=== PATIENT | female | born 1985 ===

== ENCOUNTER 2021-07-19 19:07 | Emergency (ER) | payer SELFPAY ==
[2021-07-19 21:06] LABS: Basophils # (Auto) 0.1 K/mm3 (0.0-0.1); Basophils % (Auto) 0.7 % (0.0-1.8); Eosinophils # (Auto) 0.1 K/mm3 (0.0-0.4); Eosinophils % (Auto) 0.6 % (0.0-4.3); Hematocrit 41.9 % (30.3-42.9); Lymphocytes # (Auto) 2.6 K/mm3 (1.2-5.4); Lymphocytes % (Auto) 22.4 % (13.4-35.0); Mean Corpuscular HGB Conc 33 % (30-34); Mean Corpuscular Volume 89 fl (79-97); Monocytes # (Auto) 0.5 K/mm3 (0.0-0.8); Monocytes % (Auto) 4.5 % (0.0-7.3); Platelet Count 214 K/mm3 (140-440); Red Blood Count 4.72 M/mm3 (3.65-5.03)
[2021-07-19 21:13] LABS: Calcium Oxalate Crystals,Urine 3+
[2021-07-19 21:19] LABS: Color,Urine Red (Yellow); RBC,Urine > 182.0 /HPF (0.0-6.0); WBC,Urine > 182.0 /HPF (0.0-6.0)
[2021-07-19 21:20] LABS: Bilirubin,Urine Color Interference (Negative); Blood,Urine TNR (Negative); PH,Urine TNR (5.0-7.0); Protein,Urine TNR mg/dL (Negative); Urobilinogen,Urine TNR mg/dL (<2.0)
[2021-07-19] MEDS ORDERED: ACETAMINOPHEN 500 MG TAB PO ONE (21:44)
[2021-07-19] MEDS ORDERED: LIDOCAINE-MPF (1%) 10 MG/1 ML VIAL 5 ML INFILTRATI ONE (21:44)
[2021-07-19 22:12] LABS: Alanine Aminotransferase 9 units/L (7-56); Blood Urea Nitrogen 7 mg/dL (7-17); Calcium 9.6 mg/dL (8.4-10.2); Hemolysis Index 5
[2021-07-19 22:19] LABS: BUN/Creatinine Ratio 12
--- NOTE | 2021-07-19 23:45 | Ultrasound Report ---
OBSTETRIC ULTRASOUND INDICATION: Pelvic pain, vaginal bleeding, COMPARISON: No prior relevant imaging studies are available for comparison. TECHNIQUE: Transabdominal imaging was performed. FINDINGS: Single viable intrauterine is identified. Heart rate is 90. Sonographic gestational age is 14 weeks 6 days by crown-rump length. Maternal ovaries are unremarkable. No amniotic fluid is seen. CONCLUSION: Single intrauterine . Heart rate is 90. There is essentially no amniotic fluid. Signer Name: Milton Pérez MD Signed: 07/19/2021 11:40 PM Workstation Name: [id number]
--- NOTE | 2021-07-20 00:58 | Emergency Department Report ---
ED Female HPI - General Chief complaint: Vaginal Bleeding Stated complaint: 12WKS /BLEEDING Source: patient, family Mode of arrival: Ambulatory Limitations: Language Barrier - History of Present Illness Initial comments: Patient is a A1 36-year-old female with no past medical history and who is approximately 12 weeks gestation presents to the ED with complaint of acute onset persistent pelvic pain with heavy vaginal bleeding for the last 8 hours. Patient states that she has not taken any medications for pain at home prior to arrival in the ED. Patient denies nausea and vomiting, fever, chills, dysuria, urinary frequency and urgency, low back pain, chest pain, shortness of breath, headache, lightheadedness, dizziness or syncope or diarrhea and cough. MD Complaint: vaginal bleeding, pelvic pain -: Sudden, hour(s) (8) Location: suprapubic, other (Vaginal) Radiation: non-radiating Severity: severe Severity scale (0 -10): 7 Quality: cramping, sharp Consistency: intermittent Improves with: none Worsens with: none Are you Now?: Yes (12 weeks gestation) Associated Symptoms: vaginal bleeding, abdominal pain (Suprapubic pain). denies: nausea/vomiting, fever/chills, headaches, dysuria, hematuria, rash, seizure, shortness of breath, syncope, weakness - Related Data Sexually active: Yes : 3 Para: 1 A: 1 Home Medications Medication Instructions Recorded Confirmed Last Taken Folic Acid 1 tab PO QDAY 05/09/18 05/09/18 05/08/18 14:00 1 Previous Rx's Medication Instructions Recorded Last Taken Type Acetaminophen [Tylenol] 500 mg PO Q6HR PRN #30 tablet 07/20/21 Unknown Rx cephALEXin [Keflex] 500 mg PO Q6HR #40 capsule 07/20/21 Unknown Rx Allergies Allergy/AdvReac Type Severity Reaction Status Date / Time aspirin Allergy Rash Verified 05/09/18 09:59 ED Review of Systems ROS: Stated complaint: 12WKS /BLEEDING Other details as noted in HPI Constitutional: denies: chills, fever Eyes: denies: eye pain, eye discharge, vision change ENT: denies: ear pain, throat pain Respiratory: denies: cough, shortness of breath, wheezing Cardiovascular: denies: chest pain, palpitations Endocrine: no symptoms reported Gastrointestinal: abdominal pain (Suprapubic pain). denies: nausea, vomiting, diarrhea, constipation, hematemesis Genitourinary: abnormal menses (Heavy vaginal bleeding). denies: urgency, dysuria, discharge Musculoskeletal: denies: back pain, joint swelling, arthralgia Skin: denies: rash, lesions Neurological: denies: headache, weakness, paresthesias Psychiatric: denies: anxiety, depression Hematological/Lymphatic: denies: easy bleeding, easy bruising ED Past Medical Hx - Past Medical History Previous Medical History?: No Hx Hypertension: No Hx Congestive Heart Failure: No Hx Diabetes: No Hx Deep Vein Thrombosis: No Hx Renal Disease: No Hx Sickle Cell Disease: No Hx Seizures: No Hx Asthma: No Hx COPD: No Hx HIV: No - Surgical History Past Surgical History?: No - Social History Smoking Status: Never Smoker - Medications Home Medications: Home Medications Medication Instructions Recorded Confirmed Last Taken Type Folic Acid 1 tab PO QDAY 05/09/18 05/09/18 05/08/18 14:00 History 1 Acetaminophen [Tylenol] 500 mg PO Q6HR PRN #30 tablet 07/20/21 Unknown Rx cephALEXin [Keflex] 500 mg PO Q6HR #40 capsule 07/20/21 Unknown Rx ED Physical Exam - General Limitations: Language Barrier General appearance: alert, in no apparent distress - Head Head exam: Present: atraumatic, normocephalic, normal inspection - Eye Eye exam: Present: normal appearance, PERRL, EOMI Pupils: Present: normal accommodation - ENT ENT exam: Present: normal exam, normal orophraynx, mucous membranes moist, TM's normal bilaterally, normal external ear exam - Neck Neck exam: Present: normal inspection, full ROM - Respiratory Respiratory exam: Present: normal lung sounds bilaterally. Absent: respiratory distress, wheezes, rales, rhonchi, chest wall tenderness, accessory muscle use, decreased breath sounds, other - Cardiovascular Cardiovascular Exam: Present: regular rate, normal rhythm, normal heart sounds. Absent: systolic murmur, diastolic murmur, rubs, gallop - GI/Abdominal GI/Abdominal exam: Present: soft, tenderness (Palpable suprapubic tenderness), normal bowel sounds. Absent: guarding, rebound, hyperactive bowel sounds, hypoactive bowel sounds - Bi-manual exam: Present: other (Pelvic exam deferred at this time patient preference) - Extremities Exam Extremities exam: Present: normal inspection, full ROM, normal capillary refill. Absent: tenderness - Back Exam Back exam: Present: normal inspection, full ROM. Absent: tenderness, CVA tenderness (R), CVA tenderness (L), muscle spasm, paraspinal tenderness, vertebral tenderness - Neurological Exam Neurological exam: Present: alert, oriented X3, CN II-XII intact, normal gait, reflexes normal - Psychiatric Psychiatric exam: Present: normal affect, normal mood - Skin Skin exam: Present: warm, dry, intact, normal color. Absent: rash ED Course Vital Signs 07/19/21 07/19/21 20:24 22:45 Temperature 98.7 F Pulse Rate 91 H Respiratory 17 14 Rate Blood Pressure 148/86 [Right] O2 Sat by Pulse 100 Oximetry - Reevaluation(s) Reevaluation #1: 07/20/21 01:08 I paged and discussed the patient's ultrasound reports, history and physical exam findings and lab test results with the AGRICULTURAL EQUIPMENT SALES ENGINEER physician on-call Dr. Abreu who advised that the patient needs to follow-up with his office first thing in the morning today on Tuesday, July 20, 2021 at 9:30 AM promptly for further evaluation. ED Medical Decision Making - Lab Data Result diagrams: 07/19/21 20:49 07/19/21 20:49 - Radiology Data Radiology results: report reviewed, image reviewed [place] [id number] Ultrasound Report Signed Patient: KAE APARICIO MR#: [id number] : 1985 Acct:[id number] Age/Sex: 36 / F ADM Date: 07/19/21 Loc: ED Attending Dr: Ordering Physician: JOO BOYD Date of Service: 07/19/21 Procedure(s): US OB <= 14 weeks fetus Accession Number(s): [id number] cc: JOO BOYD OBSTETRIC ULTRASOUND INDICATION: Pelvic pain, vaginal bleeding, COMPARISON: No prior relevant imaging studies are available for comparison. TECHNIQUE: Transabdominal imaging was performed. FINDINGS: Single viable intrauterine is identified. Heart rate is 90. Sonographic gestational age is 14 weeks 6 days by crown-rump length. Maternal ovaries are unremarkable. No amniotic fluid is seen. CONCLUSION: Single intrauterine . Heart rate is 90. There is essentially no amniotic fluid. Signer Name: Milton Pérez MD Signed: 07/19/2021 11:40 PM Workstation Name: [id number] Transcribed By: AMOR Dictated By: Milton Pérez MD Electronically Authenticated By: Milton Pérez MD Signed Date/Time: 07/19/212339 DD/ 37 TD/TT: - Medical Decision Making This is a A1 36-year-old female with no past medical history and who is approximately 12 weeks gestation presents to the ED with complaint of acute onset persistent pelvic pain with heavy vaginal bleeding for the last 8 hours. Patient states that she has not taken any medications for pain at home prior to arrival in the ED. in the ED, patient is alert and oriented x3 and is not in any distress. Patient was treated for pain in the ED. Lab test results were reviewed and showed acute leukocytosis of 11,500, significant urinary tract infection in urinalysis as well as gross hematuria, [place] [address]. Transvaginal ultrasound showed a single intrauterine of approximately 14 weeks and 6 days and heart rate of 90 beats per minute. There is essentially no amniotic fluid. Patient also received Rocephin 1 g intramuscular injection. These findings were discussed with the AGRICULTURAL EQUIPMENT SALES ENGINEER physician on-call Dr. Abreu who advised that the patient be discharged home and have her follow-up with his office first thing in the morning on Tuesday, July 20, 2021 at 0 9:30 AM for further evaluation. This plans were discussed with the patient who verbalized understanding and promised to comply in the presence of her family members. Patient was therefore discharged home on pain medication antibiotics and advised to maintain a complete pelvic rest and to follow-up with Dr. Abreu promptly as advised. Patient was otherwise advised return to the ED immediately if symptoms get worse. - Differential Diagnosis Threatened miscarriage; subchor bleed; UTI; ovarian cyst; uterine fibroid Critical care attestation.: If time is entered above; I have spent that time in minutes in the direct care of this critically ill patient, excluding procedure time. ED Disposition Clinical Impression: Inevitable , Vaginal bleeding in patient at less than 20 weeks gestation, Abdominal pain during in second trimester, Acute urinary tract infection, Threatened miscarriage Disposition: 01 HOME / SELF CARE / HOMELESS Is pt being admited?: No Does the pt Need Aspirin: No Condition: Stable Instructions: and Urinary Tract Infection, Abdominal Pain During , [id number], Urinary Tract Infection, Adult, [id number], Vaginal Bleeding During , Second Trimester, [id number], Threatened Miscarriage, [id number] Additional Instructions: Se revisaron todos los resultados de las pruebas de laboratorio y no son procesables, excepto por harry infeccin significativa del tracto urinario en el anlisis de orina. La ecografa transvaginal mostr un embarazo intrauterino ree de aproximadamente 14 semanas y 6 her y con harry frecuencia cardaca de 90. Esencialmente no hay lquido amnitico. Por lo tanto, tome los medicamentos recomendados para el dolor, tambin tome antibiticos y juliann un seguimiento con el mdico obstetra/gineclogo Dr. Abreu hoy a primera hora de la maana a las 9:30 a. m. en graves consultorio para harry evaluacin adicional. Regrese al servicio de urgencias inmediatamente si los sntomas empeoran. Prescriptions: Acetaminophen [Tylenol] 500 mg PO Q6HR PRN #30 tablet PRN Reason: Pain , Severe (7-10) cephALEXin [Keflex] 500 mg PO Q6HR #40 capsule Referrals: JANNA ABREU MD [Staff Physician] - [facility] (SEGUIMIENTO CON DR. ABREU A PRIMERA COSA DE LA MAANA A LAS 0930 AM PARA HARRY EVALUACIN ADICIONAL) Time of Disposition: 01:06 Print Language: CITIZEN OF [place]
[2021-07-20 02:08] VITALS: BP 135/72
== END 2021-07-20 02:09 | disposition home or self-care (01) ==
LOC: ED 19:07
DX: O03.4 Incomplete spontaneous abortion without complication (principal); O23.41 Unspecified infection of urinary tract in pregnancy, first trimester; N39.0 Urinary tract infection, site not specified; Z88.6 Allergy status to analgesic agent; Z3A.12 12 weeks gestation of pregnancy; Z79.899 Other long term (current) drug therapy
CPT/HCPCS: 36415; 76801; 80053; 81001; 84702; 85025; 86900; 86901; 96372; 99284; J0696; J3490

== ENCOUNTER 2021-07-22 17:12 | Emergency (ER) | payer SELFPAY ==
--- NOTE | 2021-07-22 18:39 | Emergency Department Report ---
HPI - General Chief Complaint: Abdominal Pain Time Seen by Provider: 07/22/21 18:28 - HPI HPI: Room 2 The patient is a 36-year-old female present with a chief complaint of lower abdominal pain and feeling as though she is having a miscarriage. The patient presented to this ED a few days ago for lower abdominal pain vaginal bleeding. Patient is . An ultrasound at that time revealed essentially no amniotic fluid. Patient states she has continued to have vaginal bleeding going through numerous pads a day but she is uncertain of the number because she changes them frequently. Patient comes in today because she states she feels though the baby is coming out. Patient currently gives her pain a score of 8/10 ED Past Medical Hx - Family History Family history: no significant - Social History Smoking Status: Never Smoker Substance Use Type: None - Medications Home Medications: Home Medications Medication Instructions Recorded Confirmed Last Taken Type Folic Acid 1 tab PO QDAY 05/09/18 05/09/18 05/08/18 14:00 History 1 Acetaminophen [Tylenol] 500 mg PO Q6HR PRN #30 tablet 07/20/21 Unknown Rx cephALEXin [Keflex] 500 mg PO Q6HR #40 capsule 07/20/21 Unknown Rx Azithromycin [Zithromax Z-ERNESTINA] 0 mg PO DAILY #6 tab 07/22/21 Unknown Rx Ibuprofen [Motrin 800 MG tab] 800 mg PO Q8HR PRN #20 tablet 07/22/21 Unknown Rx ED Review of Systems ROS: Stated complaint: AB PAIN / Other details as noted in HPI Constitutional: no symptoms reported Eyes: denies: eye pain ENT: denies: throat pain Respiratory: no symptoms reported Cardiovascular: denies: chest pain Endocrine: no symptoms reported Gastrointestinal: abdominal pain Genitourinary: abnormal menses Musculoskeletal: denies: back pain Neurological: denies: headache Physical Exam - Physical Exam Vital Signs: Vital Signs 07/22/21 17:57 Temperature 99 F Pulse Rate 135 H Respiratory 18 Rate Blood Pressure 139/90 [Right] O2 Sat by Pulse 98 Oximetry Physical Exam: GENERAL: The patient is well-developed well-nourished female lying on stretcher not appearing to be in acute distress. [] HEENT: Normocephalic. Atraumatic. Extraocular motions are intact. Patient has moist mucous membranes. NECK: Supple. Trachea midline CHEST/LUNGS: Clear to auscultation. There is no respiratory distress noted. HEART/CARDIOVASCULAR: Regular. There is no tachycardia. There is no gallop rub or murmur. ABDOMEN: Abdomen is soft, with mild suprapubic discomfort. Patient has normal bowel sounds. There is no abdominal distention. SKIN: There is no rash. There is no edema. There is no diaphoresis. NEURO: The patient is awake, alert, and oriented. The patient is cooperative. The patient has no focal neurologic deficits. The patient has normal speech. GCS 15 MUSCULOSKELETAL: There is no evidence of acute injury. ED Course Vital Signs 07/22/21 17:57 Temperature 99 F Pulse Rate 135 H Respiratory 18 Rate Blood Pressure 139/90 [Right] O2 Sat by Pulse 98 Oximetry - Reevaluation(s) Reevaluation #1: 07/22/21 19:30 Patient passed fetus umbilical cord still attached. SILK SCREEN FRAME ASSEMBLER called - Consultations Consultation #1: 07/22/21 19:30 SILK SCREEN FRAME ASSEMBLER paged 07/22/21 20:15 Case discussed with SILK SCREEN FRAME ASSEMBLER Dr. Jansen- recommends giving Hemabate 250 mcg IM x1 now and then repeating the dose in 30 minutes 07/22/21 22:[address] Jansen states uterus is clean patient passed fetus and placenta. Can discharge home with a Z-Ernestina and Motrin 800 mg ED Medical Decision Making - Lab Data Result diagrams: 07/22/21 18:39 07/22/21 18:39 Laboratory Tests 07/22/21 07/22/21 07/22/21 18:39 18:39 18:39 WBC 13.2 H RBC 4.37 Hgb 12.9 Hct 38.9 MCV 89 MCH 29 MCHC 33 RDW 13.6 Plt Count 196 Lymph % (Auto) 16.2 Pike % (Auto) 5.3 Eos % (Auto) 0.5 Baso % (Auto) 0.4 Lymph # (Auto) 2.1 Pike # (Auto) 0.7 Eos # (Auto) 0.1 Baso # (Auto) 0.1 Seg Neutrophils % 77.6 H Seg Neutrophils # 10.2 H Sodium 134 L Potassium 3.5 L Chloride 99.8 Carbon Dioxide 22 Anion Gap 16 BUN 7 Creatinine 0.6 Estimated GFR > 60 BUN/Creatinine Ratio 12 Glucose 143 H Calcium 9.2 HCG, Quant 40548 H - Differential Diagnosis Inevitable , incomplete , threatened Critical care attestation.: If time is entered above; I have spent that time in minutes in the direct care of this critically ill patient, excluding procedure time. ED Disposition Clinical Impression: Spontaneous Disposition: HOME / SELF CARE / HOMELESS Is pt being admited?: No Does the pt Need Aspirin: No Condition: Stable Instructions: Abdominal Pain (ED) Additional Instructions: Return to the emergency department should you develop worsening symptoms, inability to tolerate food or liquids, high fever or any other concerns Prescriptions: Ibuprofen [Motrin 800 MG tab] 800 mg PO Q8HR PRN #20 tablet PRN Reason: Pain , Severe (7-10) Azithromycin [Zithromax Z-ERNESTINA] 0 mg PO DAILY #6 tab Referrals: JANNA JANSEN MD [Staff Physician] - 3-5 Days Time of Disposition: 22:14
[2021-07-22 18:56] LABS: Basophils # (Auto) 0.1 K/mm3 (0.0-0.1); Basophils % (Auto) 0.4 % (0.0-1.8); Eosinophils # (Auto) 0.1 K/mm3 (0.0-0.4); Eosinophils % (Auto) 0.5 % (0.0-4.3); Hematocrit 38.9 % (30.3-42.9); Hemoglobin 12.9 gm/dl (10.1-14.3); Lymphocytes # (Auto) 2.1 K/mm3 (1.2-5.4); Lymphocytes % (Auto) 16.2 % (13.4-35.0); Mean Corpuscular HGB Conc 33 % (30-34); Mean Corpuscular Volume 89 fl (79-97); Monocytes # (Auto) 0.7 K/mm3 (0.0-0.8); Monocytes % (Auto) 5.3 % (0.0-7.3); Platelet Count 196 K/mm3 (140-440); Red Blood Count 4.37 M/mm3 (3.65-5.03); Red Cell Distribution Width 13.6 % (13.2-15.2)
[2021-07-22 19:09] LABS: Blood Urea Nitrogen 7 mg/dL (7-17); Calcium 9.2 mg/dL (8.4-10.2); Hemolysis Index 5
[2021-07-22 19:35] LABS: BUN/Creatinine Ratio 12
[2021-07-22] MEDS ORDERED: CARBOPROST TROMETHAMINE 250 MCG/1 ML INJ IM ONE ×2 (20:11→20:45)
[2021-07-22 22:57] VITALS: BP 121/72
== END 2021-07-22 22:58 | disposition home or self-care (01) ==
LOC: ED 17:12
DX: O03.9 Complete or unspecified spontaneous abortion without complication (principal)
CPT/HCPCS: 36415; 80048; 84702; 85025; 96372; 99283; J3490